=== PATIENT | male | born 1970 | race Caucasian/White ===

== ENCOUNTER → 2019-01-15 | Day surgery (SDC) | payer MEDICARE, BC ==
[~2019-01-15] MED LIST: AMLODIPINE BESY10 MG PO; AURYXIA PO; LABETALOL HCL100 MG PO; MUCINEX FAST-M180 M4 PO; OMEGA-31000 M1 PO; OXYCODONE HCL 55 MG PO; PAXIL10 MG PO; SENSIPAR 30 MG30 M1 PO
[2019-01-15 06:19] LABS: HEMATOCRIT 36.7 % (42.0-52.0); HEMOGLOBIN 12.4 gm/dL (14.0-18.0); MCH 31.3 pg (26.0-34.0); MCHC 33.7 g/dL (28.0-37.0); MCV 92.9 fL (80.0-100.0); RBC 3.95 mil/uL (4.50-6.00); RDW-CV 14.4 % (10.5-14.5); WBC 8.1 thou/uL (4.0-11.0)
[2019-01-15 06:27] LABS: CALCIUM 8.3 mg/dL (8.5-10.1); CREATININE 8.4 mg/dL (0.6-1.3); POTASSIUM 3.9 mmol/L (3.5-5.1)
[2019-01-15 06:32] LABS: ALBUMIN 3.8 g/dL (3.4-5.0); TOTAL BILIRUBIN 0.4 mg/dL (<0.1-1.0); TOTAL PROTEIN 8.4 g/dL (6.4-8.2)
--- NOTE | 2019-01-15 10:30 | EKG ---
[place] [address] ELECTROCARDIOGRAM REPORT Name: JUDAHMARTELLADE CONTRERAS Room: [facility]#: [id number] Admission: 01/15/19 Attend Phys: Sachin Dee MD Discharge: Date of : 70 Report #: [id number] THIS REPORT FOR: //name// [facility] Test Date: 2019-01-15 Test Time: 07:32:26 Pat Name: ADE SO Department: Room: Gender: M [employer] Special Machine: : 1970 Requested By: Sachin Dee Order Number: [id number] Marie MD: Eddie Mendoza Measurements Intervals [place] Rate: 72 P: 17 MO: 168 QRS: 18 QRSD: 109 T: 18 QT: 435 QTc: 477 Interpretive Statements Sinus rhythm Borderline prolonged QT interval Baseline wander in lead(s) V2 No previous ECG available for comparison Electronically Signed On 01-15-2019 10:29:44 CDT by Eddie Mendoza [email or web address] <ELECTRONICALLY SIGNED> By: Eddie Mendoza MD, [facility] 01/15/19 1029 0732 07 Eddie Mendoza MD, FACC /EPI
--- NOTE | 2019-01-15 11:05 | OP ---
[address] [address] OPERATIVE REPORT Name: HALIEALEXADE MANIC Room: [facility]#: [id number] Admission: 01/15/19 Attend Phys: Sachin Dee MD Discharge: Date of : 70 Report #: [id number] THIS REPORT FOR: //name// CC: Luciano Dee DATE OF SERVICE: 01/15/2019 PREOPERATIVE DIAGNOSES: 1. End-stage renal disease. 2. Pseudoaneurysmal degeneration, left forearm arteriovenous fistula. 3. Foreign body, left forearm. POSTOPERATIVE DIAGNOSES: 1. End-stage renal disease. 2. Pseudoaneurysmal degeneration, left forearm arteriovenous fistula. 3. Foreign body, left forearm. PROCEDURE: 1. Revision left forearm arteriovenous fistula with resection of pseudoaneurysm and placement of PTFE interposition graft. 2. Removal of foreign body, left forearm. SURGEON: Sachin Dee MD MANAGER CUSTOMS: Dr. Barajas, resident year-2. SECOND SAFETY AND OCCUPATIONAL HEALTH MANAGER: Wang Marquez, registered nurse surgical services. COMPLICATIONS: None. ESTIMATED BLOOD LOSS: 10 mL. SPECIMEN: Includes foreign body, coil. ANESTHESIA: General. INDICATIONS FOR PROCEDURE: The patient is a very pleasant 48-year-old white male with end-stage renal disease, on dialysis. He has a left forearm AV fistula. He had pseudoaneurysmal degeneration of his fistula. He had a partial revision with plication of the more distal aspect of the fistula by my partner, Dr. Bowie. He has done well from this. He presents today to have the remainder of his pseudoaneurysms resected. He also complains of a foreign body in his forearm. This is a previously placed coil, which was placed for a large side branch stealing flow from his fistula. He has requested that I remove this today at the same time as it causes [place] [address] OPERATIVE REPORT Name: JUDAHADE CONTRERAS Room: [facility]#: [id number] Admission: 01/15/19 Attend Phys: Sachin Dee MD Discharge: Date of : 70 Report #: [id number] Informed consent was obtained from the patient with risks including, but not limited to bleeding, infection, need for further surgery, pain, , heart attack, stroke, steal syndrome. The patient understood these risks and was agreeable to proceed. DESCRIPTION OF PROCEDURE: The patient was taken to the OR and placed in the supine position. General anesthesia was initiated, left arm was prepped and draped. Timeout was performed. I created a longitudinal incision over the area of the pseudoaneurysmal degeneration. Sharp and blunt dissections were carried down to the vessel. We carefully dissected out the pseudoaneurysm. I attempted to plicate the pseudoaneurysm by resecting a portion of the pseudoaneurysm wall. However, the vein was quite friable and weak. It immediately became evident that the vein was not going to tolerate the plication. Further, the vein appeared to be narrowed from the plication procedure. At this point in time, we made intraoperative decision to abort application of the vein in favor of interposition graft. This was clearly going to be a more viable option for long-term. I opened and prepped an 8 mm PTFE graft. I resected the pseudoaneurysmal portion of the vein. I spatulated the free ends of the vein as well as the graft after trimming the graft to the appropriate length. We created an end-to-end anastomosis proximally and distally using a running 5-0 Prolene suture. At the completion of each anastomosis, there was adequate hemostasis. There was an excellent thrill throughout the fistulized vein and the graft. We then turned our attention to the foreign body. This was located more medially on the forearm. I sharply and bluntly dissected down to the hard object. There was a very large coil at this location. This area measured approximately 3 cm x 1 cm x 1 cm. I resected the entire embolized vein in addition to the coil. I did not oversew the more distal aspect as there was maintained luminal patency at that level. We oversewed this with a 3-0 silk suture. We removed the coil in its entirety and passed off the field for pathologic evaluation. We irrigated the wound beds with antibiotic saline. We controlled bleeding as needed with Tim electrocautery, ties and clips. We closed the wound in multiple layers using 3-0 Vicryl and Monocryl for the skin. Incision was dressed with Dermabond. The patient was taken alert and awake to recovery room in good condition with palpable thrill in his fistula. <ELECTRONICALLY SIGNED> By: Sachin Dee MD 01/15/19 1105 1007 1041Rmandeep Dee MD /nt
--- NOTE | 2019-01-17 02:06 | PATH ---
[address] [place] [address] PATHOLOGY RPT PROCEDURE Name: JUDAHADE CONTRERAS Room: [facility].#: [id number] Admission: 01/15/19 Date of : 70 Discharge: Report #: [id number] Path Case #: [id number] [facility] Accession Number: [id number] . 01 Material submitted: . forearm - FOREIGN BODY LEFT FOREARM. Modifiers: left . 01 Clinical history: . End-stage renal disease Left over lead coild from previous surgery . 02 Diagnosis: "Foreign body left forearm", removal: - Foreign body consistent with coiled metal. (Gross examination only). (CLW/db; 01/16/2019) LBQ/01/16/2019 . 02 Electronically signed: . Shanel Last MD, Pathologist NPI- [id number] . 01 Gross description: . Received in formalin labeled "Ade Campo, foreign body L forearm," are two irregular segments of sunshine-mcneil soft tissue with scant attached yellow, lobulated adipose tissue measuring 1.4 x 1.1 x 0.9 cm and 2.3 x 1.3 x 1.2 cm in greatest dimensions. The smaller segment displays three connected segments of mcneil, coiled metal extending from one aspect of the specimen for a linear length of 7.9 cm. Attempted sectioning through this segment reveals extensively embedded metal coils throughout the tissue. Attempted sectioning through the larger segment reveals similarly embedded metallic material. Gross photographs are taken. Tissue is not submitted. ([facility]; 01/16/2019) XDC/XDC . 02 Pathologist provided ICD-10: I77.0, Z18.10 . 02 CPT . 911229 Specimen Comment: A courtesy copy of this report has been sent to Specimen Comment: [phone], . Specimen Comment: Report sent to and Performed at: [address] [id number] MD John Reich MD Phone: [phone] Performed at: [address] [place] [address] PATHOLOGY RPT PROCEDURE Name: ADE CAMPO Room: [facility]#: [id number] Admission: 01/15/19 Date of : 70 Discharge: Report #: [id number] Path Case #: [id number] [address], [place] [id number] MD Saul De La Cruz MD Phone: [phone]
== END | disposition home or self-care (01) ==
LOC: M.SUR 05:53 → EDSTATUS 07:31 → M.PRE 07:31 → M.SUR 07:32
PROVIDERS: Surgery Vascular Surgery
DX: I77.0 Arteriovenous fistula, acquired (principal); T84.84XA Pain due to internal orthopedic prosthetic devices, implants and grafts, initial encounter; N18.6 End stage renal disease; M79.632 Pain in left forearm; Z98.890 Other specified postprocedural states; Z79.899 Other long term (current) drug therapy; Z88.8 Allergy status to other drugs, medicaments and biological substances; Y83.8 Other surgical procedures as the cause of abnormal reaction of the patient, or of later complication, without mention of misadventure at the time of the procedure